=== PATIENT | female | born 1945 | race Caucasian/White ===

== ENCOUNTER 2019-12-09 11:56 | Day surgery (SDC) | payer OTHER ==
[~2019-12-09] VITALS: Ht 162.6 cm; Wt 56.7 kg
[~2019-12-09 11:56] MED LIST: AUGMENTIN 875-1 EACH PO; MELOXICAM15 MG PO; ONCE DAILY1 EACH PO
--- NOTE | 2019-12-09 13:33 | NUR ---
12/09/19 1333 Bhavin Cooper MD AT BEDSIDE REVIEWING PROCEDURE WITH PT. DENIES PAIN OR NAUSEA.
--- NOTE | 2019-12-11 11:46 | OR ---
[facility] [address] [place], [place] [address] Signed DATE OF OPERATION: 12/09/2019 SURGEON: Nella Jameson MD PREOPERATIVE DIAGNOSIS: Persistent rectal bleeding with bowel movements. POSTOPERATIVE DIAGNOSES: 1. Colitis of distal colon and rectum, probably ulcerative colitis, new diagnosis. 2. Diverticulosis sigmoid. PROCEDURES: Total colonoscopy to cecum with intubation of the ileum and biopsies of ileum, colon and rectum. ANESTHESIA: Intravenous sedation. Fentanyl 100 mcg and Versed 2 mg. INDICATIONS: This 74-year-old white woman is a patient of Dr. Ramez Frank. She has had greater than 6 weeks of persistent rectal bleeding with bowel movements. She has no pain upon defecation, has no diarrhea per se. She has no prior past medical history of colonic problems. She has no family history of colon cancer or bowel problems that she is aware of. She is admitted at this time to undergo colonoscopy to better characterize her bleeding problem understand the risks of bleeding, infection, and perforation. FINDINGS: Colitis was noted, which included the sigmoid and rectum. The more proximal colon was spared as was the ileum. There were diverticula of the sigmoid and left colon. Her underlying diagnosis appears to be ulcerative colitis, new diagnosis. DESCRIPTION OF PROCEDURE: The patient was brought to the endoscopy suite and placed in lateral decubitus position, given intravenous sedation to the point of slurred speech and nystagmus. Digital rectal examination was normal. An Olympus video colonoscope was passed in the rectum and manipulated throughout the colon noting colitis of the rectum and sigmoid, and portions of the descending colon, diverticula were noted in the sigmoid as well. The scope was passed beyond this ultimately to the cecum and the more proximal colon appeared entirely normal. The Electronically Signed By: NELLA JAMESON MD 12/11/19 1146 PATIENT NAME: ZAYRA HOOVER OPERATIVE REPORT DATE OF : 43 REPORT #: [id number] PHYSICIAN: NELLA JAMESON MD PCP: RAMEZ FRANK DO REPORT IS CONFIDENTIAL AND NOT TO BE RELEASED WITHOUT AUTHORIZATION [facility] [address] [place], [place] [address] Signed ileocecal valve was normal. Scope was passed through into the ileum, which was also normal. Biopsies were taken of the terminal ileum nevertheless to assess for Crohn disease (unlikely). The scope was withdrawn. Biopsies then taken of the cecum. Careful withdrawal of scope showed no abnormalities. Biopsies were taken of the transverse colon. Ultimately, the splenic flexure and scope was withdrawn to about 30-40 cm where colitis was once again re-evaluated. Biopsies were taken in this area. Then, the scope was withdrawn. Diverticula could be seen once again and biopsies were taken in the sigmoid, rectosigmoid and rectum. The findings are most consistent with ulcerative colitis. The scope was removed after retroflexed view showed no other findings of concern. She was taken to the recovery room in good condition. CONCLUDING DIAGNOSIS: New onset colitis, most likely ulcerative colitis. PLAN: We will initiate prednisone 30 mg p.o. daily in a tapering regimen for her. She will additionally initiate Prilosec 20 mg a day for side of protection of the stomach and Flagyl 250 mg p.o. t.i.d. x10 days. We will recommend a low fiber diet and see her back in the office in 4-6 weeks and assess her progress and pathology reports. We will additionally obtain lab study today of CBC, CRP, and Chem 20 to establish baseline for medical management. We will additionally initiate mesalamine 1.2 g p.o. daily. MD TITO Loyola/SIAELL /[id number] cc: Ramez Frank DO Copies: RAMEZ FRANK DO ~ Electronically Signed By: NELLA JAMESON MD 12/11/19 1146 PATIENT NAME: ZAYRA HOOVER OPERATIVE REPORT DATE OF : 43 REPORT #: [id number] PHYSICIAN: NELLA JAMESON MD PCP: RAMEZ FRANK DO REPORT IS CONFIDENTIAL AND NOT TO BE RELEASED WITHOUT AUTHORIZATION
--- NOTE | 2019-12-13 12:20 | PATH ---
[facility] [address] [place], [place] [address] Signed SPECIMEN(S): A TERMINAL ILEUM SPECIMEN(S): B CECUM SPECIMEN(S): C TRANSVERSE SPECIMEN(S): D COLON AT 30 CM SPECIMEN(S): E COLON AT 28 CM SPECIMEN(S): F COLON AT 20 CM SPECIMEN(S): G RECTUM SPECIMEN SOURCE: A. TERMINAL ILEUM B. CECUM C. TRANSVERSE D. COLON AT 30 CM E. COLON AT 28 CM F. COLON AT 20 CM G. RECTUM CLINICAL HISTORY: Rectal bleeding. MICROSCOPIC DESCRIPTION: Histologic sections of all submitted blocks are examined by light microscopy. These findings, together with the gross examination, support the pathologic diagnosis. FINAL PATHOLOGIC DIAGNOSIS: A. Terminal ileum, biopsy: - Ileal mucosa with no histopathologic abnormality. - Negative for active inflammation or granulomata. - Negative for dysplasia or malignancy. B. Colon, cecum, biopsy: - Colonic mucosa with focal noncaseating granuloma. - Negative for active, chronic or microscopic colitis. - Negative for dysplasia or malignancy. - See comment. C. Colon, transverse, biopsy: - Active colitis. - Negative for dysplasia or malignancy. - See comment. D. Colon, 30 cm, biopsy: - Colonic mucosa with no histopathologic abnormality. - Negative for active, chronic, or microscopic colitis. PATIENT NAME: ZAYRA HOOVER PATHOLOGY DATE OF : 43 REPORT #: [id number] PHYSICIAN: LU PATHOLOGY PCP: ROXANN FRANK DO REPORT IS CONFIDENTIAL AND NOT TO BE RELEASED WITHOUT AUTHORIZATION [facility] [address] [place], [place] [address] Signed - Negative for dysplasia or malignancy. E. Colon, 28 cm, biopsy: - Colonic mucosa with no histopathologic abnormality. - Negative for active, chronic, or microscopic colitis. - Negative for dysplasia or malignancy. F. Colon, 20 cm, biopsy: - Active colitis with mild crypt architectural distortion. - Negative for dysplasia or malignancy. G. Rectum, biopsy: - Active colitis with mild crypt architectural distortion. - Negative for dysplasia or malignancy. COMMENT: The differential diagnosis includes early inflammatory bowel disease and infectious etiologies. The skipped nature of the inflammation and the focal presence of granuloma favor Crohn disease. However, due to the lack of well-developed signs of chronicity, such as basal lymphoplasmactyosis and distal colonic Paneth cell metaplasia, an infectious etiology cannot be entirely excluded. Histologic features of ischemic colitis and viral cytopathic changes are not seen. Correlation with clinical and colonoscopic findings is necessary. As part of [employer] Quality Improvement Program, this case was reviewed by another member of our pathology staff. NAL:NRT:cml:C2NR GROSS DESCRIPTION: Seven specimens are received in seven containers, labeled "Hoover." A. The specimen, labeled "Hoover, terminal ileum," is received in formalin and consists of two saini soft tissue fragments that measure 0.4 cm in greatest dimension. The specimen is entirely submitted in cassette (A1). B. The specimen, labeled "Hoover, cecum," is received in formalin and consists of a single saini soft tissue fragment that measures 0.4 cm in greatest dimension. The specimen is entirely submitted in cassette (B1). C. The specimen, labeled "Hoover, transverse," is received in formalin and consists of two saini soft tissue fragments that measure 0.3 cm in greatest dimension. The specimen is entirely submitted in cassette (C1). D. The specimen, labeled "Hoover, colon at 30 cm," is received in formalin and consists of two saini soft tissue fragments that measure 0.2 cm in greatest PATIENT NAME: ZAYRA HOOVER PATHOLOGY DATE OF : 43 REPORT #: [id number] PHYSICIAN: LU TRUJILLO PCP: ROXANN FRANK DO REPORT IS CONFIDENTIAL AND NOT TO BE RELEASED WITHOUT AUTHORIZATION [facility] [address] [place], [place] [address] Signed dimension. The specimen is entirely submitted in cassette (D1). E. The specimen, labeled "Hoover, colon at 28 cm," is received in formalin and consists of three saini soft tissue fragments that measure 0.2 cm in greatest dimension. The specimen is entirely submitted in cassette (E1). F. The specimen, labeled "Hoover, colon at 20 cm," is received in formalin and consists of four saini soft tissue fragments that measure 0.3 cm in greatest dimension. The specimen is entirely submitted in cassette (F1). G. The specimen, labeled "Hoover, rectum," is received in formalin and consists of three saini soft tissue fragments that measure 0.4 cm in greatest dimension. The specimen is entirely submitted in cassette (G1). JW (under the direct supervision of a pathologist) The Gross Description was prepared using a voice recognition system. The report was reviewed for accuracy; however, sound-alike word errors, addition and/or deletions may occur. If there is any question about this report, please contact Client Services. PERFORMING LABORATORY: The technical component was performed by [employer] [facility] [address] (Data Steward: Latesha Stallworth MD; CLIA# [id number]). [facility], [address] [place] [address] (CLIA# [id number]). Diagnostician: Federica Morgan MD Pathologist Electronically Signed 12/13/2019 Copies: ~ PATIENT NAME: ZAYRA HOOVER PATHOLOGY DATE OF : 43 REPORT #: [id number] PHYSICIAN: LU TRUJILLO PCP: ROXANN FRANK DO REPORT IS CONFIDENTIAL AND NOT TO BE RELEASED WITHOUT AUTHORIZATION
== END 2019-12-09 14:02 | disposition home or self-care (01) ==
LOC: DS 11:56 → OPS 11:56 → DS 13:00 → OPS 13:00
PROVIDERS: Surgery
PROC: 0DBE8ZX Excision of Large Intestine, Via Natural or Artificial Opening Endoscopic, Diagnostic (ICD-10-PCS; 2019-12-09)
PROC: 0DBL8ZX Excision of Transverse Colon, Via Natural or Artificial Opening Endoscopic, Diagnostic (ICD-10-PCS; 2019-12-09)
PROC: 0DBP8ZX Excision of Rectum, Via Natural or Artificial Opening Endoscopic, Diagnostic (ICD-10-PCS; 2019-12-09)
PROC: 0DBB8ZX Excision of Ileum, Via Natural or Artificial Opening Endoscopic, Diagnostic (ICD-10-PCS; 2019-12-09)
PROC: 0DBH8ZX Excision of Cecum, Via Natural or Artificial Opening Endoscopic, Diagnostic (ICD-10-PCS; principal; 2019-12-09 13:00)
DX: K52.9 Noninfective gastroenteritis and colitis, unspecified (principal); K57.30 Diverticulosis of large intestine without perforation or abscess without bleeding; Z79.899 Other long term (current) drug therapy; Z86.010 Personal history of colon polyps
CPT/HCPCS: 99153; G0500; J2250; J3010; J7121

== ENCOUNTER 2021-03-02 08:56 | Day surgery (SDC) | payer OTHER ==
[~2021-03-02] VITALS: Ht 162.6 cm; Wt 55.9 kg
[~2021-03-02 08:56] MED LIST changes: +IBANDRONATE SO150 MG PO; +MESALAMINE DR400 MG PO; +OMEPRAZOLE20 MG PO; +PREDNISONE20 MG PO; +PROBIOTIC1 EAC5 PO; +TURMERIC500 M2 PO; +VITAMIN D310 MC4 PO
--- NOTE | 2021-03-02 12:37 | NUR ---
03/02/21 1237 Rose Vazquez 1207 PT ARRIVED IN PACU WIDE AWAKE WITH NO C/O'S. ABD SOFT AND PASSING FLATUS. [address] AT BEDSIDE. 1225 GETTING DRESSED WITH STAND BY ASSIST. 1235 DC INSTRUCTIONS GIVEN. ALL QUESTIONS ANSWERED.
--- NOTE | 2021-03-03 08:28 | OR ---
[facility] [address] [place], [place] [address] Signed DATE OF OPERATION: 03/02/2021 SURGEON: Nella Jameson MD PREOPERATIVE DIAGNOSIS: Known history of ulcerative colitis, episodic flare, usually stress related. POSTOPERATIVE DIAGNOSES: 1. Sigmoid and left-sided diverticulosis. 2. Minimal colitis. PROCEDURE: Total colonoscopy to cecum with multiple biopsies. ANESTHESIA: Intravenous sedation of fentanyl 100 mcg and Versed 4 mg. INDICATION: This 75-year-old white woman is a patient of Dr. Shea Luevano. She has been diagnosed by me with ulcerative colitis and has been treated initially with steroids and mesalamine, transitioning ultimately to mesalamine alone. In general, she has good control of her symptoms. She has had two episodes of flare of her colitis in the past several months, mostly related to travel and stress induced by her who has progressive dementia. She was treated by Dr. Luevano with prednisone. She has most recently been on 5 mg every other day and this is of uncertain benefit at this point. She is known to have osteoporosis. She is admitted at this time to undergo colonoscopy to better characterize the level of her mucosal healing in hopes of withdrawing entirely from any prednisone use. The risk of bleeding, infection, and perforation related to colonoscopy was reviewed with her. She understands and wished to proceed. FINDINGS: The prep was excellent. Complete colonoscopy was undertaken to the cecum without question. She had diverticulosis of the sigmoid and left colon. There was no sign of inflammation proximal to the splenic flexure and that inflammation distal from it was quite minimal indeed. There were no signs of polyps or cancer or other abnormality. DESCRIPTION OF PROCEDURE: The patient was brought to the endoscopy suite and placed in lateral decubitus position given intravenous sedation to the point of slurred speech and nystagmus. Digital rectal examination was normal. Electronically Signed By: NELLA JAMESON MD 03/03/21 0828 PATIENT NAME: ZAYRA HOOVER OPERATIVE REPORT DATE OF : 43 REPORT #: [id number] PHYSICIAN: NELLA JAMESON MD PCP: SHEA LUEVANO MD REPORT IS CONFIDENTIAL AND NOT TO BE RELEASED WITHOUT AUTHORIZATION [facility] [address] [place], [place] [address] Signed An Olympus video colonoscope was passed in the rectum and manipulated throughout the colon noting numerous diverticula of the sigmoid and left colon. Scope was ultimately passed to the cecum. The ileocecal valve and appendiceal orifice were normal. Biopsies were taken of the cecum that had normal-appearing mucosa. Careful withdrawal of scope showed no sign of abnormality until approximately the proximal descending colon where minimal inflammatory change was noted. Biopsies were taken there and in the sigmoid and rectum. There was no evidence of polyps, only diverticulosis. The scope was removed. The patient was taken to the recovery room in good condition. CONCLUDING DIAGNOSIS: Minimal colitis. PLAN: Recommend continued use of mesalamine. Discontinue prednisone entirely. If flare should be induced, steroids for short time as a rescue method is reasonable. Recurrent poor control would necessitate a change of medication from mesalamine to a higher level. We have discussed this before. FOLLOWUP PLAN: She is to return to see me in approximately six weeks. Nlela Jameson MD JM/MODL /[id number] cc: Dr. Shea Luevano Copies: ~ Electronically Signed By: NELLA JAMESON MD 03/03/21 0828 PATIENT NAME: ZAYRA HOOVER OPERATIVE REPORT DATE OF : 43 REPORT #: [id number] PHYSICIAN: NELLA JAMESON MD PCP: SHEA LUEVANO MD REPORT IS CONFIDENTIAL AND NOT TO BE RELEASED WITHOUT AUTHORIZATION
--- NOTE | 2021-03-03 15:10 | PATH ---
[facility] [address] [facility] [place], [place] [address] Signed SPECIMEN(S): A CECUM BIOPSY SPECIMEN(S): B LEFT COLON BIOPSY SPECIMEN(S): C SIGMOID BIOPSY SPECIMEN(S): D RECTAL BIOPSY SPECIMEN SOURCE: A. CECUM BIOPSY B. LEFT COLON BIOPSY C. SIGMOID BIOPSY D. RECTAL BIOPSY CLINICAL HISTORY: Colonoscopy. Ulcerative colitis/mild colitis/diverticula. MICROSCOPIC DESCRIPTION: Histologic sections of all submitted blocks are examined by light microscopy. These findings, together with the gross examination, support the pathologic diagnosis. FINAL PATHOLOGIC DIAGNOSIS: A. Cecum, biopsy: - Colonic mucosa with no significant pathologic changes. B. Colon, left, biopsy: - Colonic mucosa with no significant pathologic changes. C. Colon, sigmoid, biopsy: - Colonic mucosa with active colitis (see Comment). D. Rectum, biopsy: - Colonic mucosa with no significant pathologic changes. COMMENT: For part C, crypt architectural features of chronicity are lacking. No granulomas, viral cytopathic effect, dysplasia or microorganisms are identified. The histologic differential diagnosis would include infectious colitis, medication effect (particularly NSAIDs) and an emerging inflammatory bowel disease. Clinical and endoscopic correlation is needed. BRP:davi:C2NR GROSS DESCRIPTION: Four specimens are received in four containers, labeled "JW." A. The specimen, labeled "JW, cecum biopsy," is received in formalin and consists of one saini soft tissue fragment that measures 0.3 cm in greatest PATIENT NAME: KIKOZAYRA KAYLIE PATHOLOGY DATE OF : 43 REPORT #: [id number] PHYSICIAN: LU TRUJILLO PCP: LISSETTE LUEVANO MD REPORT IS CONFIDENTIAL AND NOT TO BE RELEASED WITHOUT AUTHORIZATION [facility] [address] [place], [place] [address] Signed dimension. The specimen is entirely submitted in cassette (A1). B. The specimen, labeled "JW, left colon biopsy," is received in formalin and consists of one saini soft tissue fragment that measures 0.2 cm in greatest dimension. The specimen is entirely submitted in cassette (B1). C. The specimen, labeled "JW, sigmoid colon biopsy," is received in formalin and consists of two saini soft tissue fragments that measure 0.1 cm in greatest dimension. The specimen is entirely submitted in cassette (C1). D. The specimen, labeled "JW, rectal biopsy," is received in formalin and consists of one saini soft tissue fragment that measures 0.2 cm in greatest dimension. The specimen is entirely submitted in cassette (D1). JS (under the direct supervision of a pathologist) The Gross Description was prepared using a voice recognition system. The report was reviewed for accuracy; however, sound-alike word errors, addition and/or deletions may occur. If there is any question about this report, please contact Client Services. PERFORMING LABORATORY: The technical component was performed by [employer], [address] [place] [id number] (Bus Or Truck Garage Mechanic: Latesha Stallworth MD; CLIA# [id number]). [facility] by [facility], [address] [place] [address] (CLIA# [id number]). Diagnostician: Smith Medley MD Pathologist Electronically Signed 03/03/2021 Copies: ~ PATIENT NAME: HOOVERZAYRAJohnson LOTT PATHOLOGY DATE OF : 43 REPORT #: [id number] PHYSICIAN: LU PATHOLOGY PCP: LISSETTE LUEVANO MD REPORT IS CONFIDENTIAL AND NOT TO BE RELEASED WITHOUT AUTHORIZATION
== END 2021-03-02 12:40 | disposition home or self-care (01) ==
LOC: DS 08:56
PROVIDERS: ATTEND Surgery
PROC: 0DBN8ZX Excision of Sigmoid Colon, Via Natural or Artificial Opening Endoscopic, Diagnostic (ICD-10-PCS; 2021-03-02)
PROC: 0DBP8ZX Excision of Rectum, Via Natural or Artificial Opening Endoscopic, Diagnostic (ICD-10-PCS; 2021-03-02)
PROC: 0DBG8ZX Excision of Left Large Intestine, Via Natural or Artificial Opening Endoscopic, Diagnostic (ICD-10-PCS; 2021-03-02)
PROC: 0DBH8ZX Excision of Cecum, Via Natural or Artificial Opening Endoscopic, Diagnostic (ICD-10-PCS; principal; 2021-03-02 11:00)
DX: K52.9 Noninfective gastroenteritis and colitis, unspecified (principal); K57.30 Diverticulosis of large intestine without perforation or abscess without bleeding; M81.0 Age-related osteoporosis without current pathological fracture; Z79.1 Long term (current) use of non-steroidal anti-inflammatories (NSAID); Z79.52 Long term (current) use of systemic steroids; Z63.79 Other stressful life events affecting family and household
CPT/HCPCS: 99153; G0500; J2250; J3010; J7121

== ENCOUNTER 2024-08-12 08:00 | Day surgery (SDC) | payer OTHER ==
[2024-08-08 09:38] VITALS: BP 111/61
[~2024-08-12] VITALS: Ht 162.6 cm; Wt 53.1 kg
[~2024-08-12 08:00] MED LIST changes: +CEFAZOLIN SODIUM 2 GM/20 ML SYR IV SCH; +COLLANEX1 GM; +DEXAMETHASONE SOD PHOS 4 MG/ML VIAL ONE; +FAMOTIDINE 20 MG/ 2 ML VIAL ONE; +IBLOOD GLUCOSE TEST STRIP 1 EA TEST VI PRN; +KETOROLAC TROMETHAMINE 30 MG/ML VIAL ONE; +LACTATED RINGER'S 1,000 ML IV ONE; +LACTATED RINGER'S 1,000 ML IV SCH; +LIDOCAINE HCL 1% 5 ML SDV INJ ONE; +MAGNESIUM500 MG; +MORPHINE SULFATE 4 MG/ML VIAL IV PRN; +OXYCODONE/APAP 5/325 TAB PO PRN; +fentaNYL citrate 100 MCG/2 ML VIAL ONE; +ondansetron HCL 4 MG TAB PO PRN; +ondansetron HCL 4 MG/2 ML VIAL IV PRN; +ondansetron HCL 4 MG/2 ML VIAL ONE; +propofoL 200 MG/20 ML VIAL ONE
[2024-08-12 08:17] VITALS: BP 126/63
[2024-08-12] MEDS ORDERED: NALOXONE HCL 0.4 MG SYR IV PRN ×2 (08:30)
[2024-08-12] MEDS ORDERED: ondansetron HCL 4 MG/2 ML VIAL IV PRN (08:30)
[2024-08-12] MEDS ORDERED: droPERidol 5 MG/2 ML VIAL IV PRN (08:30)
[2024-08-12] MEDS ORDERED: MORPHINE SULFATE 10 MG/ML VIAL IV PRN (08:30)
[2024-08-12] MEDS ORDERED: METOCLOPRAMIDE HCL 10 MG/2 ML SDV IV PRN (08:30)
[2024-08-12] MEDS ORDERED: PROCHLORPERAZINE EDISYLATE 10 MG/2 ML VIAL IV PRN (08:30)
[2024-08-12] MEDS ORDERED: fentaNYL citrate 50 MCG/ML SDV IV PRN (08:30)
[2024-08-12] MEDS ORDERED: IBLOOD GLUCOSE TEST STRIP 1 EA TEST VI PRN ×2 (08:30)
[2024-08-12] MEDS ORDERED: OXYMETAZOLINE HCL 30 ML BTL ONE (10:54)
[2024-08-12] MEDS ORDERED: SEVOFLURANE 250 ML BTL ONE (11:22)
[2024-08-12 12:25] VITALS: BP 114/85
--- NOTE | 2024-08-12 12:35 | NUR ---
08/12/24 1235 Rose Vazquez 1159 PT ARRIVED IN PACU AWAKE WITH NO C/O'S. 1215 SITTING UP IN BED SIPPING ON WATER. 1230 [employer] REP AT BEDSIDE.
== END 2024-08-12 12:55 | disposition home or self-care (01) ==
LOC: DS 08:00 → OPS 08:00 → DS 09:00 → OPS 12:55
PROVIDERS: ATTEND Urology
PROC: 01HY3MZ Insertion of Neurostimulator Lead into Peripheral Nerve, Percutaneous Approach (ICD-10-PCS; principal; 2024-08-12 09:00)
DX: N32.81 Overactive bladder (principal); R32 Unspecified urinary incontinence; R15.9 Full incontinence of feces; E78.00 Pure hypercholesterolemia, unspecified; M81.0 Age-related osteoporosis without current pathological fracture
CPT/HCPCS: 00300; 76000; C1778; C1889; C1897; J0690; J1100; J1885; J2405; J2704; J3010; J7121

== ENCOUNTER 2024-08-26 07:28 | Day surgery (SDC) | payer OTHER ==
[~2024-08-26] VITALS: Ht 162.6 cm; Wt 54.5 kg
[~2024-08-26 07:28] MED LIST changes: -DEXAMETHASONE SOD PHOS 4 MG/ML VIAL ONE; -FAMOTIDINE 20 MG/ 2 ML VIAL ONE; -KETOROLAC TROMETHAMINE 30 MG/ML VIAL ONE; -LACTATED RINGER'S 1,000 ML IV ONE; +MAGNESIUM250 M1 PO; -MAGNESIUM500 MG; -MORPHINE SULFATE 4 MG/ML VIAL IV PRN; -OXYCODONE/APAP 5/325 TAB PO PRN; +[UNRECOGNIZED DRUG - OTHER] PO; -fentaNYL citrate 100 MCG/2 ML VIAL ONE; -ondansetron HCL 4 MG TAB PO PRN; -ondansetron HCL 4 MG/2 ML VIAL IV PRN; -ondansetron HCL 4 MG/2 ML VIAL ONE; -propofoL 200 MG/20 ML VIAL ONE
[2024-08-26 07:43] VITALS: BP 134/66
--- NOTE | 2024-08-26 08:05 | NUR ---
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
[2024-08-26] MEDS ORDERED: ACETAMINOPHEN 1,000 MG/100 ML VIAL ONE (08:08)
[2024-08-26] MEDS ORDERED: ondansetron HCL 4 MG/2 ML VIAL ONE (08:08)
[2024-08-26] MEDS ORDERED: DEXAMETHASONE SOD PHOS 4 MG/ML VIAL ONE (08:08)
[2024-08-26] MEDS ORDERED: propofoL 200 MG/20 ML VIAL ONE (08:08)
[2024-08-26] MEDS ORDERED: fentaNYL citrate 100 MCG/2 ML VIAL ONE (08:08)
[2024-08-26] MEDS ORDERED: LIDOCAINE HCL 2% 5 ML SDV ONE (08:08)
--- NOTE | 2024-08-26 08:42 | NUR ---
DR CHUN AND COUTIERIER LINDA HAVE BEEN IN TO TALK WITH PT.
[2024-08-26] MEDS ORDERED: MORPHINE SULFATE 4 MG/ML VIAL IV PRN (09:00)
[2024-08-26] MEDS ORDERED: ondansetron HCL 4 MG/2 ML VIAL IV PRN ×2 (09:00→09:30)
[2024-08-26] MEDS ORDERED: KETOROLAC TROMETHAMINE 30 MG/ML VIAL IV PRN (09:30)
[2024-08-26] MEDS ORDERED: NALOXONE HCL 0.4 MG SYR IV PRN (09:30)
[2024-08-26] MEDS ORDERED: IBLOOD GLUCOSE TEST STRIP 1 EA TEST VI PRN (09:30)
[2024-08-26] MEDS ORDERED: PROCHLORPERAZINE EDISYLATE 10 MG/2 ML VIAL IV PRN (09:30)
[2024-08-26] MEDS ORDERED: fentaNYL citrate 50 MCG/ML SDV IV PRN (09:30)
[2024-08-26] MEDS ORDERED: droPERidol 5 MG/2 ML VIAL IV PRN (09:30)
[2024-08-26 10:16] VITALS: BP 114/90
--- NOTE | 2024-08-26 10:21 | NUR ---
08/26/24 1021 Rose Vazquez 2087 PT ARRIVED IN PACU WIDE AWAKE. 1000 SITTING UP IN BED SIPPING ON WATER. 1005 [employer] REP AT BEDSIDE. 1015 [employer] REP FINISHED. PT GETTING DRESSED.
== END 2024-08-26 10:25 | disposition home or self-care (01) ==
LOC: DS 07:28 → OPS 07:28 → DS 08:50 → OPS 10:25
PROVIDERS: ATTEND Urology
PROC: 0JH70MZ Insertion of Stimulator Generator into Back Subcutaneous Tissue and Fascia, Open Approach (ICD-10-PCS; principal; 2024-08-26 08:50)
DX: N32.81 Overactive bladder (principal); R15.9 Full incontinence of feces; N81.9 Female genital prolapse, unspecified; Z79.899 Other long term (current) drug therapy
CPT/HCPCS: 01250; C1767; C1787; J0131; J0690; J1100; J2003; J2405; J2704; J3010; J7121

== ENCOUNTER 2025-03-29 17:16 | Emergency (ER) | payer OTHER ==
[~2025-03-29] VITALS: Ht 162.6 cm; Wt 55.4 kg
[~2025-03-29 17:16] MED LIST changes: -CEFAZOLIN SODIUM 2 GM/20 ML SYR IV SCH; -IBLOOD GLUCOSE TEST STRIP 1 EA TEST VI PRN; -LACTATED RINGER'S 1,000 ML IV SCH; -LIDOCAINE HCL 1% 5 ML SDV INJ ONE
[2025-03-29] MEDS ORDERED: SODIUM CHLORIDE 0.9% 500 ML IV ONE (17:45)
[2025-03-29 17:47] LABS: BASOPHILS 0.2 % (0.1-1.2); EOSINOPHILS 3.4 % (0.7-5.8); LYMPHOCYTES 2.7 % (19.3-51.7); MCH 30.4 PG (25.6-32.2); MCHC 32.3 g/dL (32.2-35.5); MCV 93.9 fL (79.4-94.8); MONOCYTES 3.8 % (4.7-12.5); NEUTROPHILS 89.4 % (34.0-71.1); RBC 4.25 M/uL (3.93-5.22)
[2025-03-29] MEDS ORDERED: ACETAMINOPHEN 500 MG TAB PO ONE (18:00)
[2025-03-29 18:08] LABS: ALT (SGPT) 44.0 U/L (14-59); AST (SGOT) 40.0 U/L (15-37); GLOMERULAR FILTRATION RATE,EST 68.0 mL/min (>60); PROTEIN, TOTAL 7.3 g/dL (6.4-8.2); UREA NITROGEN 16.0 mg/dL (7-18)
[2025-03-29 18:26] LABS: LACTIC ACID, BLOOD 1.3 mmol/L (0.4-2.0)
[2025-03-29 18:55] LABS: BLOOD/HGB, URINE NEGATIVE (Negative); KETONE, URINE SMALL (Negative); LEUK ESTERASE, URINE NEGATIVE (negative); NITRITE, URINE NEGATIVE (negative)
[2025-03-29] MEDS ORDERED: FAMOTIDINE 20 MG/ 2 ML VIAL IV ONE (19:45)
[2025-03-29] MEDS ORDERED: LACTATED RINGER'S 1,000 ML IV ONE (19:45)
[2025-03-29 20:07] LABS: CORONAVIRUS COVID-19 AG NEGATIVE (NEGATIVE)
[2025-03-29 22:30] VITALS: BP 120/67
--- NOTE | 2025-04-01 18:07 | EKG ---
[facility] [address] [place] [address] Signed Sinus rhythm with occasional premature ventricular complexes Otherwise normal ECG When compared with ECG of 08-AUG-2024 08:31, premature ventricular complexes are now present Confirmed by Pat Beatty MD () on 04/01/2025 6:07:47 PM Electronically Signed By: PAT BEATTY MD 04/01/25 1807 PATIENT NAME: HOOVERZAYRA Electrocardiogram DATE OF : 43 PHYSICIAN: PAT BEATTY MD REPORT #: [id number] REPORT IS CONFIDENTIAL AND NOT TO BE RELEASED WITHOUT AUTHORIZATION
== END 2025-03-29 22:30 | disposition home or self-care (01) ==
LOC: ED 17:16
PROVIDERS: Emergency Medicine; Internal Medicine
DX: R50.9 Fever, unspecified (principal); Z79.899 Other long term (current) drug therapy
CPT/HCPCS: 36415; 71045; 80053; 81003; 83605; 83690; 83735; 83880; 84484; 85025; 87040; 93005; 93010; 96374; 96375; 99285-25; A9270; J0696; J2405; J7040; J7121